=== PATIENT | male | born 1960 | race Caucasian/White ===

== ENCOUNTER 2016-10-12 11:47 | Emergency (ER) | payer OTHER ==
[2016-10-12 14:28] LABS: AMPHETAMINES/METHAMPHETAMINES NEGATIVE (NEGATIVE); COCAINE NEGATIVE (NEGATIVE); MARIJUANA POSITIVE (NEGATIVE); METHADONE NEGATIVE (NEGATIVE); OPIATES POSITIVE (NEGATIVE); TRICYCLIC ANTIDEPRESSANTS NEGATIVE (NEGATIVE)
--- NOTE | 2016-10-12 15:27 | RAD ---
Name: CLAUDIO OSMAN Exam: Two-view chest Comparison: None Clinical history: Chest discomfort Findings: 2 views of the chest are submitted. The heart mediastinum and hilar structures are within normal limits. There is no failure, infiltrate, pleural effusion or pneumothorax. There is a mild reverse S-shaped scoliosis of the spine. Multilevel degenerative disc disease is present.. Impression: No acute cardiopulmonary process
--- NOTE | 2016-10-12 15:28 | RAD ---
Name: CLAUDIO OSMAN Exam: Abdomen Comparison: None Clinical history: Vomiting Findings: 2 views of the abdomen are submitted. Lung bases are clear. Heart is nonenlarged. There is diffuse increased stool within the colon from the cecum to the rectum small bowel is nondilated. There is no gastric distention. Multilevel degenerative C-spine is present. There is no suspicious mass or calcification. Impression: Obstipation
--- NOTE | 2016-10-12 15:32 | RAD ---
Name: CLAUDIO OSMAN Exam: Right ankle Comparison: None Clinical history: Prior trauma and surgery. Pain. Findings: 3 views right ankle are submitted. There is an old distal right fibular ORIF. There is no evidence for hardware fracture or loosening. 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 The medial malleolar fracture is healed and is crossed by 2 threaded screws. There is destruction of the tibiotalar joint with marked irregularity of the talus and distal tibia. This could simply represent chronic severe osteoarthritis. Infection is not excluded. An acute fracture is not appreciated. There is degenerative disease within the subtalar joints. Dense atherosclerosis is identified. Impression: 1. Old ORIF of distal right fibular fracture. 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 Old healed medial malleolar fracture status post screw fixation 3. 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 4. Prior images would be very helpful for comparison.
[2016-10-12] MEDS ORDERED: LORAZEPAM 1 MG TABLET ONE (16:14)
[2016-10-12 16:32] LABS: ABSOLUTE NEUTROPHIL COUNT 6.4 K/mm3 (1.8-7.7); BASO % 0.2 % (0.2-1.0); EOS % 0.4 % (0.9-2.9); HEMATOCRIT 39.5 % (32.0-52.0); HEMOGLOBIN 13.2 gm/l (14.0-18.0); IMM NEUT% 0.1 % (0-1); LYMPH # 1.3 (1.0-4.8); LYMPH % 15.7 % (15-45); MEAN CELL VOLUME 91.2 fl (80.0-94.0); MEAN CORPUSCULAR HEMOGLOBIN 30.5 pg (27.0-31.0); MEAN CORPUSCULAR HGB CONC 33.4 g/dl (33.0-37.0); MONO # 0.4 (0.0-0.8); MONO % 4.8 % (4-12); NEUT % 78.8 % (43-75); PLATELET COUNT 351 K/mm3 (130-400); RED CELL DISTRIBUTION WIDTH 12.4 % (11.5-14.5)
[2016-10-12 16:45] LABS: ALB/GLOB RATIO 1.3 (>1.0); ALBUMIN 4.2 gm/dL (3.5-5.7); CALCIUM 9.7 mg/dL (8.6-10.3)
[2016-10-12 20:54] LABS: PH,URINE 6.5 (5.0-8.0); SPECIFIC GRAVITY 1.015 (1.001-1.030); URINE APPEARANCE CLEAR; URINE BILIRUBIN NEGATIVE (NEGATIVE); URINE BLOOD NEGATIVE (NEGATIVE); URINE COLOR AMBER; URINE GLUCOSE (UA) 3+ (NEGATIVE); URINE LEUKOCYTE ESTERASE NEGATIVE (NEGATIVE); URINE NITRITE NEGATIVE (NEGATIVE); URINE PROTEIN NEGATIVE (NEGATIVE); URINE UROBILINOGEN NORMAL (0-1 mg/dl)
== END 2016-10-12 17:58 | disposition home or self-care (01) ==
LOC: ED 11:47
DX: E11.40 Type 2 diabetes mellitus with diabetic neuropathy, unspecified (principal); K31.84 Gastroparesis; I10 Essential (primary) hypertension; F17.210 Nicotine dependence, cigarettes, uncomplicated; Z86.19 Personal history of other infectious and parasitic diseases
CPT/HCPCS: 85025; 80305; 80053; 81003; 74020; 73610; 71020; 99283 ×2; 36415; 93005; A9270